=== PATIENT | female | born 1945 | race Caucasian/White ===

== ENCOUNTER 2019-03-10 14:51 | Emergency (ER) | payer MEDICARE ==
[~2019-03-10] VITALS: Ht 157.5 cm; Wt 55.5 kg
[2019-03-10] MEDS ORDERED: adenosine 3mg/ml 2ml vial IV ONE ×4 (15:00→15:05)
[2019-03-10] MEDS ORDERED: normal saline 1000ML IV soln IVB ONE (15:10)
[2019-03-10 15:17] LABS: BASOPHILS # (AUTO) 0.1 X10'3 (0-0.2); BASOPHILS % (AUTO) 0.7 % (0-1); EOSINOPHILS % (AUTO) 0.3 % (0-6); HEMATOCRIT 37.3 % (35.0-45.0); HEMOGLOBIN 12.3 g/dl (12.0-16.0); LYMPHOCYTES # (AUTO) 1.7 X10'3 (1.1-4.8); LYMPHOCYTES % (AUTO) 20.4 % (21-51); MEAN CORPUSCULAR HEMOGLOBIN 27.7 PG (27.0-31.0); MEAN CORPUSCULAR VOLUME 83.7 FL (78-98); MEAN PLATELET VOLUME 8.5 FL (7.4-10.4); MONOCYTES # (AUTO) 0.8 X10'3 (0-0.9); MONOCYTES % (AUTO) 9.2 % (2-12); NEUTROPHILS # (AUTO) 5.7 X10'3 (1.8-7.7); NEUTROPHILS % (AUTO) 69.4 % (42-75); PLATELET COUNT 472 X10'3 (140-440); RED BLOOD COUNT 4.45 X10'6 (4.20-5.60); RED CELL DISTRIBUTION WIDTH 14.3 % (11.5-14.5); WHITE BLOOD COUNT 8.2 X10'3 (4.5-11.0)
[2019-03-10 15:29] LABS: ALANINE AMINOTRANSFERASE 17 U/L (12-78); ALBUMIN 3.6 G/DL (3.4-5.0); ALBUMIN/GLOBULIN RATIO 0.8 (1.1-1.5); ALKALINE PHOSPHATASE 93 IU/L (46-116); ANION GAP 11 (8-16); ASPARTATE AMINO TRANSFERASE 14 U/L (10-37); BILIRUBIN,TOTAL 0.8 MG/DL (0.1-1.0); BLOOD UREA NITROGEN 5 MG/DL (7-18); BUN/CREATININE RATIO 6.6 (6.6-38.0); CALCIUM 9.3 MG/DL (8.5-10.1); CHLORIDE 101 MMOL/L (99-107); CREATININE 0.76 MG/DL (0.40-0.90); GLUCOSE 141 MG/DL (70-104); SODIUM 136 MMOL/L (135-145); TOTAL PROTEIN 8.3 G/DL (6.4-8.2); eGFR 75 ML/MIN
[2019-03-10 15:38] LABS: MAGNESIUM 2.4 MG/DL (1.5-2.4)
[2019-03-10] MEDS ORDERED: SOTA80TA PO (16:02)
[2019-03-10] MEDS ORDERED: iohexol 300mg/ml 100ml inj. ONE (16:13)
--- NOTE | 2019-03-10 16:19 | NUR ---
TAKING PT OUT TO CT VIA [facility]
--- NOTE | 2019-03-10 16:35 | NUR ---
PT RETURNS FROM CT
[2019-03-10 17:53] VITALS: BP 143/65
== END 2019-03-10 17:55 | disposition home or self-care (01) ==
LOC: ER 14:52
DX: I47.1 Supraventricular tachycardia (principal); R42 Dizziness and giddiness; R00.2 Palpitations; R10.9 Unspecified abdominal pain; R11.2 Nausea with vomiting, unspecified; R53.1 Weakness; Z88.6 Allergy status to analgesic agent; Z79.899 Other long term (current) drug therapy
CPT/HCPCS: 36415; 71045; 71260; 80053; 83735; 83880; 84439; 84443; 84484; 85025; 93005; 96361; 96374; 99284; J0153; J7030; Q9967

== ENCOUNTER 2020-09-17 22:50 | Emergency (ER) | payer MEDICARE ==
[~2020-09-17] VITALS: Ht 157.5 cm; Wt 50.0 kg
[~2020-09-17 22:50] MED LIST: ASPI-1 PO; CATS CLAW PO; DILT180T11 PO; ENZY1TAB4 PO; FAMO10TA41 PO; HAWTHORNE PO; OXYC-658 PO; VITA50005 PO; VITAMIN B12 PO; [UNRECOGNIZED DRUG - OTHER] PO; [UNRECOGNIZED DRUG - OTHER] PO
[2020-09-18] MEDS ORDERED: iohexol 300mg/ml 100ml inj. ONE (00:42)
[2020-09-18 00:48] LABS: BASOPHILS % (AUTO) 0.1 % (0-1); EOSINOPHILS % (AUTO) 0.1 % (0-6); HEMATOCRIT 31.4 % (35.0-45.0); HEMOGLOBIN 10.5 g/dl (12.0-16.0); LYMPHOCYTES # (AUTO) 0.9 X10'3 (1.1-4.8); LYMPHOCYTES % (AUTO) 13.4 % (21-51); MEAN CORPUSCULAR HGB CONC 33.4 g/dL (33.0-36.5); MEAN CORPUSCULAR VOLUME 80.9 FL (78-98); MEAN PLATELET VOLUME 7.8 FL (7.4-10.4); MONOCYTES # (AUTO) 0.6 X10'3 (0-0.9); MONOCYTES % (AUTO) 8.5 % (2-12); NEUTROPHILS # (AUTO) 5.1 X10'3 (1.8-7.7); NEUTROPHILS % (AUTO) 77.9 % (42-75); PLATELET COUNT 393 X10'3 (140-440); RED BLOOD COUNT 3.88 X10'6 (4.20-5.60); RED CELL DISTRIBUTION WIDTH 16.4 % (11.5-14.5); WHITE BLOOD COUNT 6.5 X10'3 (4.5-11.0)
[2020-09-18 00:51] VITALS: BP 166/60
[2020-09-18 00:55] LABS: ALANINE AMINOTRANSFERASE 12 U/L (12-78); ALBUMIN 3.2 G/DL (3.4-5.0); ALBUMIN/GLOBULIN RATIO 0.8 (1.1-1.5); ALKALINE PHOSPHATASE 85 IU/L (46-116); ANION GAP 11 (8-16); ASPARTATE AMINO TRANSFERASE 11 U/L (10-37); BILIRUBIN,TOTAL 0.7 MG/DL (0.1-1.0); BLOOD UREA NITROGEN 5 MG/DL (7-18); BUN/CREATININE RATIO 7.8 (6.6-38.0); CALCIUM 9.1 MG/DL (8.5-10.1); CHLORIDE 104 MMOL/L (99-107); CREATININE 0.64 MG/DL (0.40-0.90); GLUCOSE 114 MG/DL (70-104); POTASSIUM 3.7 MMOL/L (3.5-5.1); SODIUM 141 MMOL/L (135-145); TOTAL CARBON DIOXIDE 26.5 MMOL/L (24-32); TOTAL PROTEIN 7.2 G/DL (6.4-8.2); eGFR > 90 ML/MIN
[2020-09-18] MEDS ORDERED: POLY17PO10 PO (02:22)
== END 2020-09-18 02:42 | disposition home or self-care (01) ==
LOC: ER 22:51
DX: K59.00 Constipation, unspecified (principal); R10.84 Generalized abdominal pain; R11.2 Nausea with vomiting, unspecified; Z98.890 Other specified postprocedural states; Z88.6 Allergy status to analgesic agent; Z88.8 Allergy status to other drugs, medicaments and biological substances; Z79.82 Long term (current) use of aspirin; Z79.899 Other long term (current) drug therapy
CPT/HCPCS: 36415; 74177; 80053; 85025; 99285; Q9967; 99284

== ENCOUNTER → 2024-09-26 | Outpatient (CLI) | payer MEDICARE ==
[~2024-09-26] MED LIST changes: +ACET-2119 PO; -ASPI-1 PO; +CALC3.8S BOTHNARES; -CATS CLAW PO; +CHOL50004 PO; +CYAN100097 PO; -DILT180T11 PO; -FAMO10TA41 PO; +FERR-39 PO; +HAWT500C PO; -HAWTHORNE PO; +LACT1CAP75 PO; +LIDO700A47 TOP; -OXYC-658 PO; +UBID100C16 PO; -VITA50005 PO; -VITAMIN B12 PO
--- NOTE | 2024-09-26 20:56 | RADIOLOGY REPORT ---
EXAM: MR MRI LOWER EXTREMITY LEFT HISTORY: INSUFFICIENCY FX PROXIMAL MEDIAL TIBIA COMPARISON: None TECHNIQUE: Multiplanar, multisequence imaging of the left knee was performed without contrast FINDINGS: MEDIAL COMPARTMENT: Attritional thinning which may be compatible with prior partial meniscectomy of t he medial meniscus. Diffuse cartilage thinning with near [id number] contact of the medial aspect o f the medial weight-bearing compartment. LATERAL COMPARTMENT: Intact lateral meniscus. Broad-based diffuse cartilage thinning without subchond ral edema PATELLOFEMORAL COMPARTMENT: No focal chondrosis or subchondral edema. CRUCIATE LIGAMENTS: Intact anterior and posterior cruciate ligaments. MEDIAL SUPPORTING STRUCTURES: Intact medial collateral ligament. LATERAL SUPPORTING STRUCTURES: Intact iliotibial band, lateral capsular ligament, fibular collateral ligament, popliteus, and biceps femoris tendons EXTENSOR MECHANISM: Intact JOINT SPACE/FLUID: No joint effusion. BONES: Transverse nondisplaced fracture of the medial proximal tibial metaphysis with prominent surro unding edema. Subchondral insufficiency fracture of the medial femoral condyle and suspected of the p osterior medial tibial plateau (series 7, image 7) MUSCLES: Mild edema along the popliteus. Intramuscular fascial edema. Mild diffuse edema of the proxi mal calf musculature. NEUROVASCULAR: Unremarkable OTHER: None IMPRESSION: 1. Insufficiency fracture of the medial tibial plateau metaphysis with significant surrounding bone m arrow edema. 2. Subchondral insufficiency fracture of the medial femoral condyle and suspected of the posterior me dial tibial plateau. 3. Reactive myositis/ muscle strength of the proximal calf musculature. 4. Attritional thinning of the menisci and diffuse cartilage thinning.
== END | disposition home or self-care (01) ==
LOC: MRI02 15:51
PROVIDERS: ATTEND Orthopaedic Surgery
DX: S82.145A Nondisplaced bicondylar fracture of left tibia, initial encounter for closed fracture (principal); X58.XXXA Exposure to other specified factors, initial encounter; Y93.89 Activity, other specified; Y92.89 Other specified places as the place of occurrence of the external cause; Y99.8 Other external cause status
CPT/HCPCS: 73721

== ENCOUNTER 2024-11-21 15:45 | Outpatient (CLI) | payer MEDICARE ==
[~2024-11-21 15:45] MED LIST changes: +CYAN-36 PO; -CYAN100097 PO
--- NOTE | 2024-11-21 20:32 | RADIOLOGY REPORT ---
CLINICAL INDICATION: KNEE PAIN UNSPESIFIED TECHNIQUE: Left DI KNEE, COMP 4 VW MIN Comparison: None FINDINGS/IMPRESSION: : There is no evidence of acute fracture or dislocation. 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 Linear sclerosis in the proximal tibia. This likely represents healing insufficiency fracture of the medial tibial plateau.
--- NOTE | 2024-11-21 20:33 | RADIOLOGY REPORT ---
CLINICAL INDICATION: KNEE PAIN UNSPESIFIED TECHNIQUE: Right DI KNEE, COMP 4 VW MIN Comparison: None FINDINGS/IMPRESSION: : There is no evidence of acute fracture or dislocation. Soft tissues are unremarkable. Severe tricompartmental degenerative change.
== END 2024-11-21 23:59 | disposition home or self-care (01) ==
LOC: RAD 15:45
PROVIDERS: ATTEND Student in an Organized Health Care Education/Training Program
DX: M17.0 Bilateral primary osteoarthritis of knee (principal); M25.562 Pain in left knee; M25.561 Pain in right knee
CPT/HCPCS: 73564